=== PATIENT | male | born 1935 | race Caucasian/White ===

== ENCOUNTER 2017-05-09 17:13 | Observation (INO) | payer MEDICARE, MEDICAID ==
--- NOTE | 2017-05-09 17:58 | ED PDOC ---
Arrival/HPI - General Chief Complaint: Chest Pain Time Seen by Provider: 05/09/17 17:21 Historian: Patient - History of Present Illness Narrative History of Present Illness (Text): 05/09/17 18:07 An 81 year old male, whose past medical history includes hypertension, diabetes , glaucoma, CAD (7 stents) presents to the emergency department for sinus bradycardia, mild chest pain, lightheadedness and feeling tired. Patient's daughter provided history. Daughter reports these symptoms have developed about 3-4 weeks ago. She also notes patient was at PMD who advised him to come to the emergency department. Notes patient is compliant with medications. Denies any other complaints at this time. PMD: Dr. Luna Time/Duration: < month Symptom Onset: Sudden Symptom Course: Unchanged Activities at Onset: Rest Context: Home Past Medical History - Provider Review Nursing Documentation Reviewed: Yes - Infectious Disease Hx of Infectious Diseases: None - Tetanus Immunization Tetanus Immunization: Unknown - Cardiac Hx Cardiac Disorders: Yes (stents) Hx Congestive Heart Failure: Yes Hx Hypertension: Yes - Pulmonary Hx Respiratory Disorders: No - Neurological Hx Neurological Disorder: No - HEENT Hx HEENT Disorder: No - Renal Hx Renal Disorder: No - Endocrine/Metabolic Hx Diabetes Mellitus Type 2: Yes - Hematological/Oncological Hx Blood Disorders: No - Integumentary Hx Dermatological Disorder: No - Musculoskeletal/Rheumatological Hx Falls: No - Gastrointestinal Hx Gastrointestinal Disorders: No Other/Comment: l - Genitourinary/Gynecological Hx Genitourinary Disorders: No - Psychiatric Hx Psychophysiologic Disorder: No Hx Substance Use: No - Surgical History Hx Cardiac Catheterization: Yes Hx Coronary Stent: Yes - Anesthesia Hx Anesthesia: Yes Hx Anesthesia Reactions: No Hx Malignant Hyperthermia: No - Suicidal Assessment Feels Threatened In Home Enviroment: No Family/Social History - Physician Review Nursing Documentation Reviewed: Yes Family/Social History: Other (non-contributory) Smoking Status: Never Smoked Hx Alcohol Use: No Hx Substance Use: No Hx Substance Use Treatment: No Allergies/Home Meds Allergies/Adverse Reactions: Allergies No Known Allergies Allergy (Verified 05/09/17 17:25) Home Medications: Home Meds Medication Instructions Recorded Confirmed Carvedilol [Coreg] 3.125 mg PO BID 05/09/17 05/09/17 Clopidogrel [Plavix] 75 mg PO DAILY 05/09/17 05/09/17 Dexlansoprazole [Dexilant] 60 mg PO DAILY 05/09/17 05/09/17 Dexlansoprazole [Dexilant] 60 mg PO DAILY 05/09/17 05/09/17 Diclofenac Sodium [Voltaren] 0 gm TP 05/09/17 Insulin Aspart, Recombinant 4 unit SC AC 05/09/17 05/09/17 [Novolog] Insulin Detemir [Levemir] 12 units SC HS 05/09/17 05/09/17 Neomycin/Polymyxin/Hydrocort 0 drop TID 05/09/17 05/09/17 [Cortisporin Otic Soln] Rosuvastatin Calcium [Crestor] 10 mg PO DAILY 05/09/17 05/09/17 Spironolactone [Aldactone] 50 mg PO DAILY 05/09/17 05/09/17 amLODIPine [Norvasc] 5 mg PO DAILY 05/09/17 05/09/17 Review of Systems - Physician Review All systems were reviewed & negative as marked: Yes - Review of Systems Constitutional: Other (lightheadedness) Cardiovascular: Chest Pain (mild) Physical Exam Vital Signs Reviewed: Yes Vital Signs Temp Pulse Resp BP Pulse Ox 05/09/17 17:36 97.8 F 45 L 17 150/54 L 97 Appearance: Positive for: Well-Appearing, Non-Toxic, Comfortable Pain Distress: None Mental Status: Positive for: Alert and Oriented X 3 - Systems Exam Head: Present: Atraumatic, Normocephalic Pupils: Present: PERRL Extroacular Muscles: Present: EOMI Conjunctiva: Present: Normal Mouth: Present: Moist Mucous Membranes Neck: Present: Normal Range of Motion Respiratory/Chest: Present: Clear to Auscultation, Good Air Exchange. No: Respiratory Distress, Accessory Muscle Use Cardiovascular: Present: Bradycardic. No: Murmurs Abdomen: Present: Normal Bowel Sounds. No: Tenderness, Distention, Peritoneal Signs Back: Present: Normal Inspection Upper Extremity: Present: Normal Inspection, Other (radial and dp pulses equal) . No: Cyanosis, Edema Lower Extremity: Present: Normal Inspection. No: Edema Neurological: Present: GCS=15, CN II-XII Intact, Speech Normal Skin: Present: Warm, Dry, Normal Color. No: Rashes Psychiatric: Present: Alert, Oriented x 3, Normal Insight, Normal Concentration Medical Decision Making ED Course and Treatment: 05/09/17 17:54 EKG: Ordered, reviewed, and independently interpreted the EKG. Rate : 43 BPM Rhythm : sinus bradycardia Interpretation : 1st degree AV block 05/09/17 17:59 Chest xray: No acute findings, interpreted by me. - Lab Interpretations Lab Results: 05/09/17 17:45 05/09/17 17:45 Lab Results 05/09/17 17:45: PT 14.0 H, INR 1.28 H, APTT 27.7 05/09/17 17:45: TSH 3rd Generation 1.14 05/09/17 17:45: Sodium 141, Potassium 4.4, Chloride 107, Carbon Dioxide 24, Anion Gap 14, BUN 31 H, Creatinine 1.6 H, Est GFR ( Amer) 50, Est GFR ( Non-Af Amer) 42, Random Glucose 112 H, Calcium 9.8, Total Bilirubin 0.8, AST 27 , ALT 28, Alkaline Phosphatase 65, Troponin I < 0.01, Total Protein 6.8, Albumin 4.0, Globulin 2.8, Albumin/Globulin Ratio 1.4 05/09/17 17:45: WBC 7.7, RBC 3.58, Hgb 11.2 L, Hct 33.1 L, MCV 92.5, MCH 31.3, MCHC 33.8, RDW 12.6, Plt Count 149, MPV 12.9 H, Gran % 55.9, Lymph % (Auto) 33.2 , [place] % (Auto) 9.5 H, Eos % (Auto) 1.0 L, Baso % (Auto) 0.4, Gran # 4.28, Lymph # 2.5, [place] # 0.7 H, Eos # 0.1, Baso # 0.03 I have reviewed the lab results: Yes - RAD Interpretation Radiology Orders: 05/09/17 17:38 CHEST PORTABLE [RAD] Stat - EKG Interpretation Interpreted by ED Physician: Yes Type: 12 lead EKG - Medication Orders Current Medication Orders: Atorvastatin Calcium (Lipitor) 40 mg PO DAILY LIAT Clopidogrel Bisulfate (Plavix) 75 mg PO DAILY LIAT Enoxaparin Sodium (Lovenox) 40 mg SC DAILY LIAT PRN Reason: Protocol Sodium Chloride (Sodium Chloride 0.9%) 1,000 mls @ 80 mls/hr IV .[id number] LIAT Insulin Detemir (Levemir) 12 unit SC HS LIAT Insulin Human Lispro (Humalog) 4 units SC AC LIAT Insulin Human Lispro (Humalog Low) 0 units SC AC LIAT PRN Reason: Protocol Insulin Human Lispro (Humalog Low) 0 units SC ACHS LIAT PRN Reason: Protocol Pantoprazole Sodium (Protonix Ec Tab) 40 mg PO DAILY LIAT Discontinued Medications Insulin Human Lispro (Humalog Low) 0 units SC AC LIAT PRN Reason: Protocol - Scribe Statement The provider has reviewed the documentation as recorded by the Tc Rodarte Provider Scribe Attestation: All medical record entries made by the Soraidaibmoi were at my direction and personally dictated by me. I have reviewed the chart and agree that the record accurately reflects my personal performance of the history, physical exam, medical decision making, and the department course for this patient. I have also personally directed, reviewed, and agree with the discharge instructions and disposition. Disposition/Present on Arrival - Present on Arrival History of DVT/PE: No History of Uncontrolled Diabetes: No Urinary Catheter: No History of Decub. Ulcer: No History Surgical Site Infection Following: None - Disposition
[2017-05-09 18:02] LABS: BASO # 0.03 K/mm3 (0.0-2.0); BASO % 0.4 % (0.0-3.0); EOS # 0.1 (0.0-0.7); GRAN # 4.28 (1.4-6.5); GRAN % 55.9 % (50.0-68.0); HEMATOCRIT 33.1 % (42.0-52.0); LYMPH # 2.5 (1.2-3.4); LYMPH % 33.2 % (22.0-35.0); MEAN CELL VOLUME 92.5 fl (80.0-105.0); MEAN CORPUSCULAR HEMOGLOBIN 31.3 pg (25.0-35.0); MEAN CORPUSCULAR HGB CONC 33.8 g/dl (31.0-37.0); MEAN PLATELET VOLUME 12.9 fl (7.0-11.0); MONO # 0.7 (0.1-0.6); MONO % 9.5 % (1.0-6.0); RED CELL DISTRIBUTION WIDTH 12.6 % (11.5-14.5); WHITE BLOOD COUNT 7.7 10^3/ul (4.5-11.0)
[2017-05-09 18:11] LABS: ALB/GLOB RATIO 1.4 (1.1-1.8); ALKALINE PHOSPHATASE 65 U/L (38-126); ALT/SGPT 28 U/L (7-56); AST/SGOT 27 U/L (17-59); BILIRUBIN,TOTAL 0.8 mg/dL (0.2-1.3); BLOOD UREA NITROGEN 31 mg/dL (7-21); CALCIUM 9.8 mg/dL (8.4-10.5); CARBON DIOXIDE 24 mmol/L (21-33); CHLORIDE 107 mmol/L (98-107); GFR AFRICAN-AMERICAN 50; GLUCOSE,RANDOM 112 mg/dL (70-110); POTASSIUM 4.4 mmol/L (3.6-5.0); SODIUM 141 mmol/L (132-148); TOTAL PROTEIN 6.8 g/dL (5.8-8.3)
[2017-05-09 18:34] LABS: TROPONIN I < 0.01 ng/mL
[2017-05-09 19:35] LABS: INR 1.28 (0.93-1.08)
[2017-05-09 19:36] LABS: PARTIAL THROMBOPLASTIN TIME 27.7 Seconds (25.1-36.5)
[2017-05-09 19:58] LABS: CHOLESTEROL 122 mg/dL (130-200); URIC ACID 7.1 mg/dL (3.5-8.5)
[2017-05-09 20:01] LABS: URINE BILIRUBIN NEGATIVE (NEGATIVE); URINE BLOOD TRACE-INTACT (NEGATIVE); URINE GLUCOSE (UA) NEGATIVE (NEGATIVE); URINE KETONE NEGATIVE (NEGATIVE); URINE LEUKOCYTE ESTERASE NEGATIVE Leu/uL (NEGATIVE); URINE PROTEIN TRACE mg/dL (<30 mg/dL); URINE UROBILINOGEN 0.2 E.U./dL (<1 E.U./dL)
[2017-05-09 20:02] LABS: URINE APPEARANCE CLEAR (CLEAR); URINE COLOR YELLOW (YELLOW)
[2017-05-09 20:06] LABS: URINE WBC 0 - 2 /hpf (0-6)
[2017-05-09 20:07] LABS: URINE AMORPHOUS SEDIMENT FEW; URINE BACTERIA FEW (NEG)
[2017-05-09 20:12] LABS: TROPONIN I < 0.01 ng/mL
[2017-05-09 20:32] VITALS: BMI 24.2
[2017-05-09] MEDS ORDERED: Influenza Vaccine 60 mcg/0.5 mL SYR (4YR UP) IM ONE (20:32)
[2017-05-09] MEDS ORDERED: Pneumococcal 23-Valent Vaccine IM ONE (20:32)
[2017-05-09] MEDS: Enoxaparin 40 mg Syringe SC SCH (21:03)
[2017-05-09] MEDS: Pantoprazole 40 mg EC Tab PO SCH (21:03)
[2017-05-09] MEDS: Sodium Chloride 0.9% 1,000 ML IV SCH (21:05)
[2017-05-09] MEDS ORDERED: Insulin Detemir 100 units/ml Vial (Levemir) SC SCH (22:00)
[2017-05-09] MEDS: Insulin Lispro (humaLOG) LOW Coverage SC SCH (22:59)
[2017-05-10 00:33] VITALS: O2SAT 99
[2017-05-10 07:08] LABS: TROPONIN I < 0.01 ng/mL
[2017-05-10] MEDS ORDERED: Insulin Lispro (humaLOG) LOW Coverage SC SCH ×2 (07:30)
--- NOTE | 2017-05-10 08:32 | RAD ---
HISTORY: weak COMPARISON: 01/12/2015 FINDINGS: LUNGS: No active pulmonary disease. PLEURA: No significant pleural effusion identified, no pneumothorax apparent. CARDIOVASCULAR: Normal. OSSEOUS STRUCTURES: No significant abnormalities. VISUALIZED UPPER ABDOMEN: Normal. OTHER FINDINGS: None. IMPRESSION: No active disease.
[2017-05-10 08:43] LABS: BASO # 0.02 K/mm3 (0.0-2.0); BASO % 0.3 % (0.0-3.0); EOS # 0.1 (0.0-0.7); EOS % 0.9 % (1.5-5.0); GRAN # 4.9 (1.4-6.5); GRAN % 64.6 % (50.0-68.0); HEMATOCRIT 34.7 % (42.0-52.0); LYMPH % 25.8 % (22.0-35.0); MEAN CELL VOLUME 92.3 fl (80.0-105.0); MEAN CORPUSCULAR HEMOGLOBIN 30.6 pg (25.0-35.0); MEAN CORPUSCULAR HGB CONC 33.1 g/dl (31.0-37.0); MEAN PLATELET VOLUME 13.2 fl (7.0-11.0); MONO # 0.6 (0.1-0.6); MONO % 8.4 % (1.0-6.0); RED CELL DISTRIBUTION WIDTH 12.6 % (11.5-14.5); WHITE BLOOD COUNT 7.6 10^3/ul (4.5-11.0)
[2017-05-10 08:58] LABS: ALB/GLOB RATIO 1.4 (1.1-1.8); ALKALINE PHOSPHATASE 54 U/L (38-126); ALT/SGPT 29 U/L (7-56); AST/SGOT 24 U/L (17-59); BILIRUBIN,DIRECT 0.2 mg/dL (0.0-0.4); BILIRUBIN,TOTAL 0.9 mg/dL (0.2-1.3); BLOOD UREA NITROGEN 26 mg/dL (7-21); CALCIUM 9.8 mg/dL (8.4-10.5); CARBON DIOXIDE 27 mmol/L (21-33); CHLORIDE 106 mmol/L (98-107); GFR AFRICAN-AMERICAN 54; GLUCOSE,RANDOM 176 mg/dL (70-110); POTASSIUM 4.1 mmol/L (3.6-5.0); SODIUM 142 mmol/L (132-148); TOTAL PROTEIN 6.5 g/dL (5.8-8.3)
[2017-05-10 09:09] LABS: TROPONIN I < 0.01 ng/mL
[2017-05-10] MEDS: Insulin Lispro 1 UNITS/0.01 ML SC SCH ×2 (09:27→12:13)
--- NOTE | 2017-05-10 09:27 | CP.PCM.HP ---
History of Present Illness - History of Present Illness History of Present Illness: PGY-[address] Lozano's service 81 year old male with past medical history of HTN, diabetes, glaucoma and CAD with 7 stents presented to the emergency department for sinus bradycardia, mild chest pain, lightheadedness and feeling tired. Patient speaks Croatian, pcp used for interpretation. Patient states that he chest discomfort for past few days. He also reports sob, which he states he's had for past few years. Per patient he went to PMD yesterday and was advised to come to the emergency department. He denies abd pain, n&v, urinary symptoms, fever and chills at this time. PMH: HTN, diabetes, glaucoma and CAD with 7 stents PSH: social hixtory: denies smoking, alcohol use, illicit drug use family history: mckenna allergy: NKDA Home meds: norvasc, aldactone, crestor, cortisporin, levemir, novolog, volaren, dexilant, plavix, coreg Present on Admission - Present on Admission Any Indicators Present on Admission: No Review of Systems - Constitutional Constitutional: Fatigue. absent: Fever, Headache, Lethargy, Weakness - EENT Eyes: absent: Change in Vision Nose/Mouth/Throat: absent: Nasal Congestion, Sore Throat - Cardiovascular Cardiovascular: Chest Pain, Dyspnea, Slow Heart Rate. absent: Palpitations - Respiratory Respiratory: Dyspnea. absent: Cough - Gastrointestinal Gastrointestinal: Constipation. absent: Abdominal Pain, Diarrhea, Nausea, Vomiting - Genitourinary Genitourinary: absent: Difficulty Urinating, Dysuria, Hematuria - Musculoskeletal Musculoskeletal: Arthralgias. absent: Myalgias, Numbness, Stiffness - Integumentary Integumentary: absent: Pruritus, Rash, Skin Ulcer - Neurological Neurological: Dizziness. absent: Numbness, Focal Weakness, Tingling, Weakness - Hematologic/Lymphatic Hematologic: absent: Easy Bleeding, Easy Bruising Past Patient History - Infectious Disease Hx of Infectious Diseases: None - Tetanus Immunizations Tetanus Immunization: Unknown - Past Social History Smoking Status: Never Smoked - CARDIAC Hx Cardiac Disorders: Yes (cad) Hx Congestive Heart Failure: Yes Hx Hypercholesterolemia: Yes Hx Hypertension: Yes Other/Comment: 7 or 8 stents to right leg and heart - PULMONARY Hx Respiratory Disorders: No - NEUROLOGICAL Hx Neurological Disorder: No - HEENT Hx Cataracts: Yes (b/l no sx yet) Hx Glaucoma: Yes - RENAL Hx Chronic Kidney Disease: No - ENDOCRINE/METABOLIC Hx Diabetes Mellitus Type 2: Yes - HEMATOLOGICAL/ONCOLOGICAL Hx Blood Disorders: No - INTEGUMENTARY Hx Dermatological Problems: No - MUSCULOSKELETAL/RHEUMATOLOGICAL Hx Musculoskeletal Disorders: Yes (chronic left knee pain) Hx Falls: No Hx Unsteady Gait: Yes (cane/walker) - GASTROINTESTINAL Hx Gastrointestinal Disorders: No Other/Comment: l - GENITOURINARY/GYNECOLOGICAL Hx Genitourinary Disorders: No - PSYCHIATRIC Hx Psychophysiologic Disorder: No Hx Substance Use: No - SURGICAL HISTORY Hx Surgeries: Yes Hx Appendectomy: Yes ("yrs ago" as per daughter) Hx Cardiac Catheterization: Yes Hx Coronary Stent: Yes Other/Comment: sx for multiple kidney stones "yrs ago" as per daughter - ANESTHESIA Hx Anesthesia: Yes Hx Anesthesia Reactions: No Hx Malignant Hyperthermia: No Meds Allergies/Adverse Reactions: Allergies Allergy/AdvReac Type Severity Reaction Status Date / Time No Known Allergies Allergy Verified 05/09/17 17:25 Physical Exam - Constitutional Appears: Well, No Acute Distress - Head Exam Head Exam: ATRAUMATIC, NORMAL INSPECTION, NORMOCEPHALIC - Eye Exam Eye Exam: EOMI, Normal appearance - ENT Exam ENT Exam: Mucous Membranes Moist - Respiratory Exam Respiratory Exam: Clear to Auscultation Bilateral, NORMAL BREATHING PATTERN. absent: Prolonged Expiratory Phase, Rales, Rhonchi, Wheezes, Respiratory Distress - Cardiovascular Exam Cardiovascular Exam: REGULAR RHYTHM, +S1, +S2. absent: Tachycardia, Systolic Murmur - GI/Abdominal Exam GI & Abdominal Exam: Normal Bowel Sounds, Soft. absent: Distended, Firm, Guarding, Tenderness - Extremities Exam Extremities exam: Positive for: normal inspection. Negative for: pedal edema, tenderness - Back Exam Back exam: NORMAL INSPECTION. absent: CVA tenderness (L), CVA tenderness (R), paraspinal tenderness, vertebral tenderness - Neurological Exam Neurological exam: Alert, Oriented x3 - Skin Skin Exam: Dry, Intact, Normal Color, Warm Results - Vital Signs Recent Vital Signs: Last Vital Signs Temp 98 F 05/10/17 06:00 Pulse 51 L 05/10/17 06:00 Resp 20 05/10/17 06:00 BP 162/72 H 05/10/17 06:00 Pulse Ox 99 05/10/17 00:01 - Labs Result Diagrams: 05/10/17 08:15 05/10/17 08:15 Labs: Laboratory Results - last 24 hr 05/09/17 05/09/17 05/09/17 19:42 19:42 21:01 WBC RBC Hgb Hct MCV MCH MCHC RDW Plt Count MPV Gran % Lymph % (Auto) [place] % (Auto) Eos % (Auto) Baso % (Auto) Gran # Lymph # [place] # Eos # Baso # Sodium Potassium Chloride Carbon Dioxide Anion Gap BUN Creatinine Est GFR ( Amer) Est GFR (Non-Af Amer) POC Glucose (mg/dL) 147 H Random Glucose Uric Acid 7.1 Calcium Total Bilirubin Direct Bilirubin AST ALT Alkaline Phosphatase Total Creatine Kinase 123 Troponin I < 0.01 Total Protein Albumin Globulin Albumin/Globulin Ratio Triglycerides 227 H Cholesterol 122 L LDL Cholesterol Direct 57 HDL Cholesterol 37 Urine Color Yellow Urine Appearance Clear Urine pH 6.0 Ur Specific [place] 1.010 Urine Protein Trace H Urine Glucose (UA) Negative Urine Ketones Negative Urine Blood Trace-intact H Urine Nitrate Negative Urine Bilirubin Negative Urine Urobilinogen 0.2 Ur Leukocyte Esterase Negative Urine RBC 1 - 3 Urine WBC 0 - 2 Ur Epithelial Cells None Amorphous Sediment Few Urine Bacteria Few 05/10/17 05/10/17 05/10/17 00:30 08:15 08:15 WBC 7.6 RBC 3.76 Hgb 11.5 L Hct 34.7 L MCV 92.3 MCH 30.6 MCHC 33.1 RDW 12.6 Plt Count 118 L MPV 13.2 H Gran % 64.6 Lymph % (Auto) 25.8 [place] % (Auto) 8.4 H Eos % (Auto) 0.9 L Baso % (Auto) 0.3 Gran # 4.90 Lymph # 2.0 [place] # 0.6 Eos # 0.1 Baso # 0.02 Sodium 142 Potassium 4.1 Chloride 106 Carbon Dioxide 27 Anion Gap 13 BUN 26 H Creatinine 1.5 Est GFR ( Amer) 54 Est GFR (Non-Af Amer) 45 POC Glucose (mg/dL) Random Glucose 176 H Uric Acid Calcium 9.8 Total Bilirubin 0.9 Direct Bilirubin 0.2 AST 24 ALT 29 Alkaline Phosphatase 54 Total Creatine Kinase 91 85 Troponin I < 0.01 < 0.01 Total Protein 6.5 Albumin 3.8 Globulin 2.7 Albumin/Globulin Ratio 1.4 Triglycerides Cholesterol LDL Cholesterol Direct HDL Cholesterol Urine Color Urine Appearance Urine pH Ur Specific [place] Urine Protein Urine Glucose (UA) Urine Ketones Urine Blood Urine Nitrate Urine Bilirubin Urine Urobilinogen Ur Leukocyte Esterase Urine RBC Urine WBC Ur Epithelial Cells Amorphous Sediment Urine Bacteria Assessment & Plan - Assessment and Plan (Free Text) Assessment: 81 year old male with past medical history of HTN, diabetes, glaucoma and CAD with 7 stents presented to the emergency department for sinus bradycardia. Plan: 1. bradycardia - trops negative x3 - EKG reviewed showed bradycardia with first degree AV block - continue home medications plavix, lipitor - hold beta adrienne - cardiology consulted 2. HTN - elevated - will continue to hold blood pressure medications to aviod bradycardia 3. Diabetes type 2 - controlled - cont home levemir and lispro GI and DVT prophylaxis
[2017-05-10] MEDS: Insulin Lispro (humaLOG) LOW Coverage SC SCH ×2 (09:28→12:11)
[2017-05-10] MEDS: Pantoprazole 40 mg EC Tab PO SCH (09:29)
--- NOTE | 2017-05-10 09:58 | CARD ---
APPROVED REPORT EKG Measurement Heart [id number] <Conclusion> Marked sinus bradycardia with 1st degree AV block No change except the MS is prolonged
[2017-05-10] MEDS: Enoxaparin 40 mg Syringe SC SCH (10:05)
[2017-05-10] MEDS: Sodium Chloride 0.9% 1,000 ML IV SCH (10:06)
--- NOTE | 2017-05-10 10:28 | CARD ---
APPROVED REPORT EKG Measurement Heart [id number] <Conclusion> Marked sinus bradycardia with 1st degree AV block No change
--- NOTE | 2017-05-10 10:51 | HP ---
HISTORY OF PRESENT ILLNESS: The patient is an 81-year-old [place] male, was sent to the emergency room. The patient's 13-system review was positive for chest pain and bradycardia. The patient came to the emergency room via walk-in. The patient came with complaint of chest pain, retrosternal pain, epigastric pain, and bradycardia. The patient's 13 systems review of symptoms were pertinent positive and negative as dictated above. CODE STATUS: Full code. LIVING WILL ADVANCE DIRECTIVE: None. ALLERGIES: NONE. HEIGHT: 5 feet 9 inches. WEIGHT: 163. BMI: 24.2. HOME MEDICATIONS: Norvasc 5 mg daily, Aldactone 50 mg daily, Coreg 3.125 twice a day, Cortisporin ear drops, Crestor 10 mg, Dexilant 60 mg, Levemir 12 units at bedtime, Norvasc 5 mg daily, NovoLog 4 units with each meal, Plavix 75 mg daily, Voltaren gel. SOCIAL HISTORY: Negative for smoking. Negative for alcohol. Negative for drug use. Negative for communicable transmissible disease. PAST MEDICAL AND SURGICAL HISTORY: History of hypertension, history of dyslipidemia, history of insulin-requiring diabetes mellitus, history of diastolic right-sided congestive heart failure with history of pulmonary hypertension, history of normocytic anemia, history of hypokalemia, history of mild kidney injury, history of [id number] right-sided diastolic congestive heart failure, history of left ventricular ejection fraction of 72%, history of hypertensive cardiovascular disease with left ventricular hypertrophy, history of moderately sclerotic aortic valve, history of moderate mitral annular calcification, history of [id number] sclerocalcific changes of the aortic root, history of pulmonary hypertension, history of left pleural effusion and left pleural thickening, history of asymptomatic sinus bradycardia, history of constipation, history of upper gastrointestinal bleeding, history of acute blood loss anemia secondary to upper gastrointestinal bleeding, history of nonbleeding descending duodenum ulceration with clean white exudate, history of esophagogastroduodenoscopy, history of esophageal erosion, history of mild sinus bradycardia, history of hypovolemic hypotensive shock, history of acute blood loss anemia, history of uncontrolled diabetes mellitus, history of hypomagnesemia, history of protein malnutrition, history of hypoalbuminemia, history of hypercalcemia, 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, history of thrombocytopenia, history of packed red blood cell transfusion, history of coronary artery disease, coronary angioplasty, history of hypertension, hyperlipidemia, history of hyperosmolar nonketotic syndrome, history of renal cyst, history of esophagogastroduodenoscopy, history of esophageal lesion, history of two deep nonbleeding ulcers in the descending duodenum covered by clean white exudate, history of upper gastrointestinal bleeding secondary to duodenal ulcer with acute blood loss anemia, history of sclerotic aortic valve with [id number] sclerocalcific changes of the aortic root, history of mitral annular calcification, history of diastolic congestive heart failure. 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 The patient's last discharge medications from 2014; the patient was on Aldactone 25 mg 3 times a day, Dexilant 60 mg daily, Ecotrin 81 mg daily, glipizide 10 mg twice a day, Levemir 10 units at bedtime, Linzess 145 mcg daily, Lipitor 40 mg daily. The patient's beta blockers and calcium channel adrienne were discontinued on last March 2015 admission. OCCUPATIONAL HISTORY: Disabled. PHYSICAL EXAMINATION: GENERAL: The patient was seen in bed #4 in the emergency room. The patient is seen lying in the bed. VITAL SIGNS: The patient's T-max is 97.8. Telemetry shows sinus bradycardia, heart rate 45, blood pressure 150/54, 134/63, respirations 17 to 19, O2 sat 98% HEENT: Head examination is normocephalic and atraumatic. HEENT examination shows pinkish pale conjunctivae. Dry oral mucosa. No neck rigidity. CHEST: Kyphosis. LUNGS: Shows no rales, crackles, or wheezing. CARDIOVASCULAR: S1 and S2. Positive systolic murmur in the left sternal border, right second intercostal space, and left second intercostal space. ABDOMEN: Soft. Positive epigastric tenderness. Positive retrosternal tenderness. Abdomen is soft and nontender. Otherwise, except for mild epigastric tenderness, no costovertebral angle tenderness. GENITALIA: Male. RECTAL: Deferred. EXTREMITIES: Extremity shows no pitting edema, no calf tenderness, no Homans sign. NEUROLOGIC: The patient is alert, awake, and oriented x3, is able to move upper and lower extremity without assistance. Gait examination is deferred. MUSCULOSKELETAL: Shows a body mass index of 24.2. DIAGNOSTICS: Hemoglobin/hematocrit 11.2/33.1, platelet 149. PT/PTT 14 and 27.7. Chemistry significant for BUN of 31, creatinine 1.6, GFR 42, glucose 147, uric acid 7.1, troponin 0.01, triglyceride 227, cholesterol 122, LDL 57, HDL 37, TSH 1.14. Urine pH 6.0, specific gravity 1.010, urine protein trace, intact blood, few bacteria. The patient's EKG and chest x-ray shows mild cardiomegaly, portable film. EKG done in the emergency room shows severe sinus bradycardia, heart rate in 40s with first degree AV block and left ventricular hypertrophy. The patient was seen in the emergency room by Dr. Hernandez. The patient was evaluated in the emergency room by the ER physician. The patient was evaluated by Dr. Hernandez and recommended to be placed on telemetry observation TREATMENT IN THE EMERGENCY ROOM: The patient was seen in the emergency room by Dr. Hernandez, ER physician and the patient was placed on telemetry observation.. IMPRESSION AND PLAN 1. Chest pain, etiology undetermined. 2. Questionable angina. 3. History of coronary artery disease, coronary angioplasty. 4. Severe symptomatic sinus bradycardia and first degree atrioventricular block. 5. Hypertension. 6. Normocytic anemia. 7. Acute kidney injury. 8. Chronic kidney disease stage IV. 9. Hyperuricemia. 10. Hyperglycemia. 11. Hypertriglyceridemia. 12. Proteinuria and microscopic hematuria and bacteriuria. 13. Marked sinus bradycardia with first degree atrioventricular block. 15. History of hypertension, dyslipidemia, coronary artery disease, coronary angioplasty, history of insulin-requiring diabetes mellitus, history of bleeding duodenal ulcer in 2014. 16. Sinus bradycardia, probably secondary to beta-adrienne and calcium-channel adrienne induced. PLAN: At this time, the patient will be placed on telemetry observation. The patient's Norvasc and Coreg will be held. The patient has been ordered repeat labs, serial cardiac enzymes, serial troponin. Cardiology consultation with Dr. Yun. The patient is resumed on his Humalog 4 units with meals, Humalog low-dose sliding scale coverage a.c. and h.s., Levemir 12 units h.s., Lipitor 40 mg daily, Lovenox 40 mg subcu daily, Plavix 75 mg daily, Protonix 40 mg daily. The patient is also ordered IV fluid 0.9 normal saline at 80 mL an hour. Repeat EKG ordered. Heart healthy diet ordered. Out of bed ordered. SHIRA stockings and SCDs ordered. Occupational therapy and physical therapy ordered.. At present, the patient's beta-blockers Coreg and calcium channel adrienne Norvasc will be held. The patient's further recommendation will be as per the Cardiology evaluation recommendation. The worse case scenario, if the patient's bradycardia persists and the patient has symptoms, the patient may require pacemaker placement. At present, the patient was seen in the emergency room in bed 4. The patient's family was advised about the patient need for hospitalization, need for further treatment. Inpatient treatment and management was explained to the patient and the family in the emergency room by the ER physician, which they are agreeable to. Dictated and electronically signed, not read. Twan Lozano MD
[2017-05-10 11:59] VITALS: BP 132/45; PULSE 51; RESP 18; TEMP 97.3
--- NOTE | 2017-05-11 07:12 | CP.PCM.DIS ---
Provider - Provider Date of Admission: 05/09/17 19:16 Attending physician: Twan Lozano MD Primary care physician: Junie Luna MD Time Spent in preparation of Discharge (in minutes): 45 Hospital Course - Lab Results Lab Results: Most Recent Lab Values WBC 7.6 10^3/ul (4.5-11.0) 05/10/17 08:15 RBC 3.76 10^6/uL (3.5-6.1) 05/10/17 08:15 Hgb 11.5 g/dL (14.0-18.0) L 05/10/17 08:15 Hct 34.7 % (42.0-52.0) L 05/10/17 08:15 MCV 92.3 fl (80.0-105.0) 05/10/17 08:15 MCH 30.6 pg (25.0-35.0) 05/10/17 08:15 MCHC 33.1 g/dl (31.0-37.0) 05/10/17 08:15 RDW 12.6 % (11.5-14.5) 05/10/17 08:15 Plt Count 118 10^3/uL (120.0-450.0) L 05/10/17 08:15 MPV 13.2 fl (7.0-11.0) H 05/10/17 08:15 Gran % 64.6 % (50.0-68.0) 05/10/17 08:15 Lymph % (Auto) 25.8 % (22.0-35.0) 05/10/17 08:15 Barry % (Auto) 8.4 % (1.0-6.0) H 05/10/17 08:15 Eos % (Auto) 0.9 % (1.5-5.0) L 05/10/17 08:15 Baso % (Auto) 0.3 % (0.0-3.0) 05/10/17 08:15 Gran # 4.90 (1.4-6.5) 05/10/17 08:15 Lymph # 2.0 (1.2-3.4) 05/10/17 08:15 Barry # 0.6 (0.1-0.6) 05/10/17 08:15 Eos # 0.1 (0.0-0.7) 05/10/17 08:15 Baso # 0.02 K/mm3 (0.0-2.0) 05/10/17 08:15 PT 14.0 SECONDS (9.4-12.5) H 05/09/17 17:45 INR 1.28 (0.93-1.08) H 05/09/17 17:45 APTT 27.7 Seconds (25.1-36.5) 05/09/17 17:45 Sodium 142 mmol/L (132-148) 05/10/17 08:15 Potassium 4.1 mmol/L (3.6-5.0) 05/10/17 08:15 Chloride 106 mmol/L (98-107) 05/10/17 08:15 Carbon Dioxide 27 mmol/L (21-33) 05/10/17 08:15 Anion Gap 13 (10-20) 05/10/17 08:15 BUN 26 mg/dL (7-21) H 05/10/17 08:15 Creatinine 1.5 mg/dL (0.8-1.5) 05/10/17 08:15 Est GFR ( Amer) 54 05/10/17 08:15 Est GFR (Non-Af Amer) 45 05/10/17 08:15 POC Glucose (mg/dL) 147 mg/dL (65-110) H 05/09/17 21:01 Random Glucose 176 mg/dL (70-110) H 05/10/17 08:15 Uric Acid 7.1 mg/dL (3.5-8.5) 05/09/17 19:42 Calcium 9.8 mg/dL (8.4-10.5) 05/10/17 08:15 Total Bilirubin 0.9 mg/dL (0.2-1.3) 05/10/17 08:15 Direct Bilirubin 0.2 mg/dL (0.0-0.4) 05/10/17 08:15 AST 24 U/L (17-59) 05/10/17 08:15 ALT 29 U/L (7-56) 05/10/17 08:15 Alkaline Phosphatase 54 U/L (38-126) 05/10/17 08:15 Total Creatine Kinase 85 U/L (35-230) 05/10/17 08:15 Troponin I < 0.01 ng/mL 05/10/17 08:15 Total Protein 6.5 g/dL (5.8-8.3) 05/10/17 08:15 Albumin 3.8 g/dL (3.0-4.8) 05/10/17 08:15 Globulin 2.7 gm/dL 05/10/17 08:15 Albumin/Globulin Ratio 1.4 (1.1-1.8) 05/10/17 08:15 Triglycerides 227 mg/dL (35-160) H 05/09/17 19:42 Cholesterol 122 mg/dL (130-200) L 05/09/17 19:42 LDL Cholesterol Direct 57 mg/dL (0-129) 05/09/17 19:42 HDL Cholesterol 37 mg/dL (29-60) 05/09/17 19:42 TSH 3rd Generation 1.14 mIU/mL (0.46-4.68) 05/09/17 17:45 Urine Color Yellow (YELLOW) 05/09/17 19:42 Urine Appearance Clear (CLEAR) 05/09/17 19:42 Urine pH 6.0 (4.7-8.0) 05/09/17 19:42 Ur Specific [place] 1.010 (1.005-1.035) 05/09/17 19:42 Urine Protein Trace mg/dL (<30 mg/dL) H 05/09/17 19:42 Urine Glucose (UA) Negative mg/dL (NEGATIVE) 05/09/17 19:42 Urine Ketones Negative mg/dL (NEGATIVE) 05/09/17 19:42 Urine Blood Trace-intact (NEGATIVE) H 05/09/17 19:42 Urine Nitrate Negative (NEGATIVE) 05/09/17 19:42 Urine Bilirubin Negative (NEGATIVE) 05/09/17 19:42 Urine Urobilinogen 0.2 E.U./dL (<1 E.U./dL) 05/09/17 19:42 Ur Leukocyte Esterase Negative Kaur/uL (NEGATIVE) 05/09/17 19:42 Urine RBC 1 - 3 /hpf (0-2) 05/09/17 19:42 Urine WBC 0 - 2 /hpf (0-6) 05/09/17 19:42 Ur Epithelial Cells None /hpf (0-5) 10/23/17 19:42 Amorphous Sediment Few 05/09/17 19:42 Urine Bacteria Few (NEG) 05/09/17 19:42 - Hospital Course Hospital Course: 81 year old male with past medical history of HTN, diabetes, glaucoma and CAD with 7 stents presented to the emergency department for sinus bradycardia, mild chest pain, lightheadedness and feeling tired. EKG showed bradycardia with 1st degree AV block. Cardiology saw patient recommended outpatient stress test and to stop beta adrienne. Patient was instructed to stop norvasc and beta adrienne. Discharge Exam - Head Exam Head Exam: ATRAUMATIC, NORMAL INSPECTION, NORMOCEPHALIC - Eye Exam Eye Exam: EOMI, Normal appearance - ENT Exam ENT Exam: Mucous Membranes Moist - Respiratory Exam Respiratory Exam: Clear to PA & Lateral, NORMAL BREATHING PATTERN, UNREMARKABLE. absent: Rales, Rhonchi, Wheezes, Respiratory Distress - Cardiovascular Exam Cardiovascular Exam: REGULAR RHYTHM, +S1, +S2. absent: Tachycardia, Diastolic murmur, Systolic Murmur - GI/Abdominal Exam GI & Abdominal Exam: Normal Bowel Sounds, Unremarkable. absent: Diminished Bowel Sounds, Distended, Firm, Guarding - Extremities Exam Extremities exam: normal inspection - Neurological Exam Neurological exam: Alert, Oriented x3 - Skin Skin Exam: Dry, Intact, Normal Color, Warm Discharge Plan - Follow Up Plan Condition: GOOD Disposition: HOME/ ROUTINE Instructions: Coronary Artery Disease (DC), Heart Healthy Diet (DC), Bradycardia (DC) Additional Instructions: STOP COREG AND NORVASC FOLLOW UP PMD WITHIN 1 WEEK FOLLOW UP WITH DR MATUTE FOR AN OUTPATIENT STRESS TEST, SCHEDULED FOR April. IF SYMPTOMS RETURN PLEASE CALL 911 OR VISIT YOUR NEAREST EMERGENCY CARE FACILITY. Referrals: Junie Luna MD [Primary Care Provider] - 1 Week (MAY DISCHARGE HOME AFTER CLEARED BY CARDIOLOGY STOP COREG AND NORVASC FOLLOW UP PMD WITHIN 1 WEEK COPY OF DIET TO PATIENT UPON DISCHARGE )
--- NOTE | 2017-05-11 11:11 | DS ---
FINAL PROGRESS NOTE AND DISCHARGE SUMMARY HISTORY OF PRESENT ILLNESS: The patient was seen and cleared for discharge by Dr. Charan Yun. The patient was seen lying in the bed in room 262, bed 1. The patient's entire communication was done when the filemaker developer with the PCP from , who communicated and translated for me in Bahamian, which is the patient's stillaguamish language as the patient is from [place]. The patient's overnight nurse's notes were reviewed. The patient slept without any distress. No adverse event documented. PHYSICAL EXAMINATION: VITAL SIGNS: T-max afebrile. Telemetry shows sinus bradycardia. Heart rate is in the high 40s, low 50s. Blood pressure 132/45, 162/72, 174/60, 134/63, 150/54, respiration 18, O2 sat 97%. HEENT: Head examination normocephalic and atraumatic. HEENT examination shows pinkish pale conjunctivae. Anicteric sclerae. No oropharyngeal lesion. NECK: No neck rigidity. CHEST: Kyphosis. LUNGS: Shows no rales, crackles, or wheezing. CARDIOVASCULAR: S1 and S2, regular rhythm. ABDOMEN: Soft. Positive bowel sounds. GENITALIA: Male. RECTAL: Deferred. EXTREMITIES: Shows no pitting edema, no calf tenderness, no Homans sign. NEUROLOGIC: The patient is alert, awake, responsive, follow simple command. MUSCULOSKELETAL: Shows a body mass index of 25. Cranial nerves II-XII grossly intact. Gait examination not tested. MUSCULOSKELETAL: Shows a body mass index of 25. DIAGNOSTICS: 05/10/2017; WBC 7.6, hemoglobin/hematocrit 11.5/34.7, platelet 181. Sodium 142, potassium 4.1, chloride 106, CO2 27, anion gap 13, BUN 26, creatinine 1.5, GFR 45, glucose 176. LFTs are normal. Troponin, four sets are negative. Triglyceride 227. Urinalysis; pH of 6.0, trace protein, trace intact blood, few bacteria. Chest x-ray results reviewed. EKG from today reviewed. Chest x-ray was negative. No active disease. EKG shows sinus bradycardia with first degree AV block, LVH pattern. The patient was cleared by Cardiology for discharge with outpatient schedule for a stress test on 05/16/2017. FINAL IMPRESSION, PLAN, AND DISCHARGE DIAGNOSES: 1. Chest pain, etiology unclear. 2. Questionable angina. 3. Severe symptomatic sinus bradycardia with first degree atrioventricular block. 4. Hypertension. 5. Normocytic anemia. 6. Acute kidney injury with underlying chronic kidney disease, stage II. 7. Insulin-requiring diabetes mellitus. 8. Hypertriglyceridemia. 9. Trace microscopic hematuria and proteinuria. 10. Most likely beta-adrienne and calcium channel adrienne induced bradycardia. Plan at this time, the patient was advised to be discharged home after cleared by Cardiology. The patient was advised to stop Coreg and Norvasc. The patient was advised to follow up PMD within 1 week. The patient was advised to give copy of the diet. The patient was also advised to follow up with Dr. Yun for outpatient stress test. Entire communication was had with the patient with the filemaker developer who spoke Bahamian and communicated with the patient in Bahamian. Time spent in the entire discharge process was 45 minutes. Dictated and electronically signed, not read. Twna Lozano MD
--- NOTE | 2017-05-11 12:13 | CON ---
DATE: 05/10/2017 HISTORY OF PRESENT ILLNESS: The patient is a 81-year-old male, who through a services coordinator who speaks Egyptian, presented with transient chest pain which is now resolved. PAST MEDICAL HISTORY: Includes coronary stents that were placed over a year ago. CARDIAC RISK FACTORS: Includes hypercholesterolemia as well as diabetes mellitus. The patient denies chest pain now, denies shortness of breath. He seems to complain of constant vertigo symptoms. SOCIAL HISTORY: Unclear. REVIEW OF SYSTEMS: A 14-point review of systems was reviewed. He denies chest pain, denies shortness of breath. Upon ambulating with assistance, the patient's heart rate increased from the 40s up to the 60s. PHYSICAL EXAMINATION: VITAL SIGNS: Blood pressure is 162/72, the heart rate at rest is in the 40s, sinus bradycardia. NECK: Negative JVD. LUNGS: Without rales. HEART: Reveals S1 and S2. EXTREMITIES: Without edema. EKG shows sinus bradycardia with no acute changes. His laboratory reveals troponins that are negative times x4. BUN and creatinine is 26 and 1.5. The hemoglobin is 11.5. IMPRESSION: 1. Transient chest pain. 2. No evidence for acute coronary syndrome. 3. History of coronary artery disease with stents in the past. 4. Sinus bradycardia without hemodynamic sequelae. 5. Anemia. 6. Diabetes mellitus. 7. Hypercholesterolemia. PLAN: Given these findings, we will ambulate the patient today. We will discuss with the patient as well as his family when they arrive about possible outpatient stress test. Charan Yun MD
== END 2017-05-10 12:28 | disposition home or self-care (01) ==
LOC: ED 17:13 → ERH 19:16 → 2RNO 23:31
PROVIDERS: ADMIT Internal Medicine; ATTEND Internal Medicine
DX: R07.9 Chest pain, unspecified (principal); R00.1 Bradycardia, unspecified; T44.7X5A Adverse effect of beta-adrenoreceptor antagonists, initial encounter; R42 Dizziness and giddiness; N17.9 Acute kidney failure, unspecified; I13.0 Hypertensive heart and chronic kidney disease with heart failure and stage 1 through stage 4 chronic kidney disease, or unspecified chronic kidney disease; E11.22 Type 2 diabetes mellitus with diabetic chronic kidney disease; N18.4 Chronic kidney disease, stage 4 (severe); E11.65 Type 2 diabetes mellitus with hyperglycemia; I44.0 Atrioventricular block, first degree; H40.9 Unspecified glaucoma; D64.9 Anemia, unspecified; E78.1 Pure hyperglyceridemia; R31.29 Other microscopic hematuria; I25.10 Atherosclerotic heart disease of native coronary artery without angina pectoris; Z95.5 Presence of coronary angioplasty implant and graft; Z79.4 Long term (current) use of insulin; Z87.11 Personal history of peptic ulcer disease; Z23 Encounter for immunization
CPT/HCPCS: 36415; 71010; 80053; 80061; 81001; 82248; 82550; 82948; 84443; 84484; 84550; 85025; 85610; 85730; 90674; 90732; 93005; 96372; 99285; G0008; G0009; G0378; J1650; J7040

== ENCOUNTER 2018-09-15 15:40 | Outpatient (CLI) | payer MEDICARE, MEDICAID | END 2018-09-15 15:41 | disposition home or self-care (01) | LOC: RAD 15:41 ==